=== PATIENT | male | born 2000 | race Caucasian/White ===

== ENCOUNTER 2022-11-14 21:28 | Emergency (ER) | payer OTHER ==
[2022-11-14 21:44] VITALS: BP 145/85
--- NOTE | 2022-11-14 23:14 | XRAY Report ---
PROCEDURE: Ankle 3 View LT INDICATIONS: fall, ankle pain TECHNIQUE: 3 views of the ankle were acquired. COMPARISON: None. FINDINGS: Bones: No fractures or dislocations. Ankle mortise is normally aligned. No suspicious bony lesions . Soft tissues: There is a small tibiotalar joint effusion. Periarticular soft tissue swelling is demo nstrated laterally. Achilles tendon appears normal. IMPRESSION: 1. No fracture or dislocation. 2. Small tibiotalar joint effusion and particular soft tissue swelling laterally. Reviewed by: Hugh Garcia MD on 11/14/2022 11:12 PM PDT Approved by: Hugh Garcia MD on 11/14/2022 11:12 PM PDT Station ID: [id number]
--- NOTE | 2022-11-14 23:17 | ED Physician Documentation ---
PD HPI LOWER EXT INJURY - Stated complaint Stated Complaint: L ANKLE INJ - Chief complaint Chief Complaint: Trauma Ext - History obtained from History obtained from: Patient - Additional information Additional information: HPI from patient. Patient c/o sudden onset left ankle pain at approximately 9:05 PM tonight when he tripped on a metal grate. Pain is worse when he weight-bears, ameliorated with rest. Pain is predominantly at outer/lateral aspect of the ankle. Denies other injury Review of Systems Musculoskeletal: reports: Joint pain, Joint swelling, Pain with weight bearing Neurologic: denies: Focal weakness, Numbness PD PAST MEDICAL HISTORY - Past Medical History Past Medical History: No Cardiovascular: None Respiratory: None Neuro: None Endocrine/Autoimmune: None GI: None : None HEENT: None Psych: None Musculoskeletal: None Derm: None - Past Surgical History Past Surgical History: No - Present Medications Home Medications: Ambulatory Orders Medication Instructions Recorded Confirmed No Known Home Medications 11/14/22 11/14/22 - Allergies Allergies/Adverse Reactions: Allergies Allergy/AdvReac Type Severity Reaction Status Date / Time No Known Drug Allergies Allergy Verified 11/14/22 21:37 - Social History Does the pt smoke?: No Smoking Status: Never smoker Does the pt drink ETOH?: Yes Does the pt have substance abuse?: No - Immunizations Immunizations are current?: Yes PD ED PE NORMAL - Vitals Vital signs reviewed: Yes - General General: Alert and oriented X 3, No acute distress, Well developed/nourished PD ED PE EXPANDED - Extremities Extremities: Tenderness (lateral aspect left ankle), Limited ROM (left ankle), Swelling (lateral aspect left ankle) Results - Vitals Vitals: Oxygen O2 Source Room air - Rads (name of study) left ankle xrays Relevant Findings:: Prelim report reviewed, EMP independent interpretation of test (I reviewed these images and my interpretation is no fracture, no dislocation; STS seen lateral aspect ), See rad report PD Medical Decision Making - ED course Complexity details: reviewed results, re-evaluated patient, considered differential, d/w patient ED course: No acute injury on left ankle xrays. Obvious swelling and tenderness on exam. Provided with crutches and left ankle/foot air cast splint placed. Results reviewed and return precautions discussed with patient Departure - Departure Disposition: 01 Home, Self Care Clinical Impression: Left ankle sprain Condition: Good Instructions: ED Sprain Ankle W X Ray, ED Crutch Walking Comments: The x-rays do not show any evidence of a fracture/break. Based on the description of the injury, the physical exam, and the lack of findings on the x- ray besides soft tissue swelling, this is an ankle sprain. I recommend that you keep the splint in place during the day for the next 3 to 4 days, and then continues in the splint at the feels like it is helping with the discomfort. Likewise, I would use the crutches to minimize weightbearing for the next 3 to 4 days, continue after that if you are still having significant pain with any weightbearing. Follow-up with your primary care provider within 1 week for reevaluation of the injury. Discharge Date/Time: 11/14/22 23:43
--- NOTE | 2022-11-14 23:27 | XRAY Report ---
PROCEDURE: Foot 3 View LT INDICATIONS: fall, foot pain TECHNIQUE: 3 views of the foot were acquired. COMPARISON: Concurrent study of the left ankle. FINDINGS: Bones: No fractures or dislocations. No suspicious bony lesions. Soft tissues: No suspicious soft tissue calcifications or masses. IMPRESSION: 1. No fracture or dislocation. Reviewed by: Hugh Garcia MD on 11/14/2022 11:40 PM PDT Approved by: Hugh Garcia MD on 11/14/2022 11:40 PM PDT Station ID: [id number]
== END 2022-11-14 23:43 | disposition home or self-care (01) ==
LOC: ED 21:28
DX: S93.402A Sprain of unspecified ligament of left ankle, initial encounter (principal); W18.49XA Other slipping, tripping and stumbling without falling, initial encounter
CPT/HCPCS: 99283